=== PATIENT | female | born 1930 | race Caucasian/White ===

== ENCOUNTER 2017-01-12 11:05 | Emergency (ER) | payer MEDICARE, BC ==
[2017-01-12 11:18] VITALS: BP 171/80
[2017-01-12] MEDS ORDERED: Sodium Chloride 0.9% 10 ML Syringe FLUSH PRN (11:28)
[2017-01-12] MEDS ORDERED: Furosemide 40 MG/4 ML VIAL IVPUSH ONE ×2 (11:28→12:28)
--- NOTE | 2017-01-12 11:36 | EDM.PDOC ---
ED HISTORY OF PRESENT ILLNESS - General Chief Complaint: Cardiovascular Problem Stated Complaint: SWOLLEN LEGS Time Seen by Provider: 01/12/17 11:19 Source of Information: Reports: Patient History Limitations: Reports: No limitations - History of Present Illness INITIAL COMMENTS - FREE TEXT/NARRATIVE: Patient presents for evaluation and treatment of bilateral lower leg edema and shortness of breath. Patient reports that she has noticed the bilateral lower leg edema worsening over the last 3 weeks. She reports that she has a blister on the top of her right foot. She also reports associated symptoms of weight gain. She denies any orthopnea, chest pain, lower leg pain, cough, fevers, nausea or vomiting. Patient noticed today that she feels her breath with activity. She states that she was taking out the trash when she felt short of breath. Patient is on Lasix. She did not take her Lasix today. She is also on Coumadin for A. fib. The patient also has compression stockings but did not wear them today. Patient reports about one month ago she was seen by a vascular surgeon. She reports there was nothing he could offer her for her edema. PCP is Dr. Dowell. Last seen in November. - Related Data Allergies/ADRs: Allergies Allergy/AdvReac Type Severity Reaction Status Date / Time sulfamethoxazole Allergy Rash Verified 01/12/17 11:18 [From Bactrim] trimethoprim [From Bactrim] Allergy Rash Verified 01/12/17 11:18 Home Meds: Home Meds Diltiazem [Cardizem CD] 240 mg PO DAILY 01/12/17 [History] Furosemide [Lasix] 40 mg PO DAILY 01/12/17 [History] Levothyroxine [Synthroid] 50 mcg PO ACBREAKFAST 01/12/17 [History] Metoprolol Succinate [Toprol XL] 50 mg PO DAILY 01/12/17 [History] Multivitamin [Multivitamins] 1 tab PO DAILY 01/12/17 [History] Potassium Chloride 20 meq PO BID 01/12/17 [History] Psyllium Husk [Metamucil] 660 gm PO BEDTIME 01/12/17 [History] Ubidecarenone [Coenzyme Q-10] 30 mg PO DAILY 01/12/17 [History] Warfarin [Coumadin] 5 mg PO DAILY 01/12/17 [History] atorvaSTATin [Lipitor] 10 mg PO BEDTIME 01/12/17 [History] Past Medical History HEENT History: Reports: Cataract Cardiovascular History: Reports: Afib, Blood clots/VTE/DVT, Hypertension Genitourinary History: Reports: Other (see below) Other Genitourinary History: bladder surgery twice about 15 years ago 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: Musculoskeletal History: Reports: None Endocrine/Metabolic History: Reports: Hypothyroidism Oncologic (Cancer) History: Reports: Other (see below) Other Oncologic History: skin cancer, right arm and back - Past Surgical History HEENT Surgical History: Reports: Cataract surgery Female Surgical History: Reports: None Musculoskeletal Surgical History: Reports: Hip replacement, Knee replacement Oncologic Surgical History: Reports: None Dermatological Surgical History: Reports: Skin biopsy Social & Family History - Family History Family Medical History: Noncontributory - Tobacco Use Smoking Status *Q: Never Smoker - Caffeine Use Caffeine Use: Reports: Coffee - Recreational Drug Use Recreational Drug Use: No ED ROS GENERAL - Review of Systems Review Of Systems: See Below Constitutional: Denies: fever Respiratory: Reports: Shortness of Breath. Denies: Cough Cardiovascular: Reports: Dyspnea on exertion, Edema. Denies: Chest pain, Claudication, Orthopnea GI/Abdominal: Denies: Nausea, Vomiting Skin: Reports: other (blister to the right dorsal foot) ED EXAM, GENERAL - Physical Exam Exam: See Below Exam Limited By: No limitations General Appearance: alert, WD/WN, no apparent distress, obese Throat/Mouth: Normal inspection, Normal voice, No airway compromise Respiratory/Chest: no respiratory distress, lungs clear, normal breath sounds Cardiovascular: normal peripheral pulses, regular rate, rhythm, no murmur Extremities: pedal edema (4+ pitting edema bilaterally), other (dorsalis pedis and posterior tibialis pulses obscured by edema) Neurological: alert, oriented, normal cognition Psychiatric: normal affect, normal mood Skin Exam: Warm, Dry, Normal color, Other (approximately 2cm in diameter blister to the right dorsal foot) EKG INTERPRETATION EKG Date: 01/12/17 Time: 11:45 Rhythm: NSR Rate (beats/min): 73 [place]: normal P-wave: present QRS: normal ST-T: normal QT: normal EKG Interpretation Comments: NSR at [address] segment changes. Reviewed by myself and Dr. Cornell. Course - Vital Signs Last Recorded V/S: Last Vital Signs Temp 36.4 C 01/12/17 11:14 Pulse 92 01/12/17 11:14 Resp 18 01/12/17 11:14 BP 171/80 H 01/12/17 11:14 Pulse Ox 96 01/12/17 11:14 - Orders/Labs/Meds Orders: Active Orders 24 hr Category Date Time Status Cardiac Monitoring [RC] . DIRECTED Care 01/12/17 11:29 Active EKG 12 Lead [EKG Documentation Completion] [RC] STAT Care 01/12/17 11:28 Active Peripheral IV Care [RC] . DIRECTED Care 01/12/17 11:29 Active Sodium Chloride 0.9% [Saline Flush] Med 01/12/17 11:28 Active 10 ml FLUSH ASDIRECTED PRN Peripheral IV Insertion Adult [OM.PC] Routine Oth 01/12/17 11:28 Ordered Medication Orders Sodium Chloride (Saline Flush) 10 ml FLUSH ASDIRECTED PRN PRN Reason: Keep Vein Open Last Admin: 01/12/17 11:39 Dose: 10 ml Labs: Laboratory Tests 01/12/17 01/12/17 01/12/17 Range/Units 11:45 11:45 11:45 WBC 4.45 (3.98-10.04) K/mm3 RBC 4.21 (3.98-5.22) M/mm3 Hgb 13.4 (11.2-15.7) gm/L Hct 42.2 (34.1-44.9) % MCV 100.2 H (79.4-94.8) fl MCH 31.8 (25.6-32.2) pg MCHC 31.8 L (32.2-35.5) g/dl RDW Std Deviation 51.1 H (36.4-46.3) fL Plt Count 136 L (182-369) K/mm3 MPV 13.1 H (9.4-12.3) fl Neut % (Auto) 57.3 (34.0-71.1) % Lymph % (Auto) 30.1 (19.3-51.7) % [place] % (Auto) 9.9 (4.7-12.5) % Eos % (Auto) 1.8 (0.7-5.8) Baso % (Auto) 0.7 (0.1-1.2) % Neut # (Auto) 2.55 (1.56-6.13) K/mm3 Lymph # (Auto) 1.34 (1.18-3.74) K/mm3 [place] # (Auto) 0.44 H (0.24-0.36) K/mm3 Eos # (Auto) 0.08 (0.04-0.36) K/mm3 Baso # (Auto) 0.03 (0.01-0.08) K/mm3 PT (8.0-13.0) SECONDS INR Sodium 143 (136-145) mEq/L Potassium 3.5 (3.5-5.1) mEq/L Chloride 106 (98-107) mEq/L Carbon Dioxide 29 (21-32) mEq/L Anion Gap 11.5 (5-15) BUN 13 (7-18) mg/dL Creatinine 0.9 (0.55-1.02) mg/dL Est Cr Clr Drug Dosing 39.63 mL/min Estimated GFR (MDRD) 59 (>60) mL/min BUN/Creatinine Ratio 14.4 (14-18) Glucose 116 H (83-115) mg/dL Calcium 8.6 (8.5-10.1) mg/dL Total Bilirubin 0.5 (0.2-1.0) mg/dL AST 14 L (15-37) U/L ALT 22 (14-59) U/L Alkaline Phosphatase 138 H (46-116) U/L CK-MB (CK-2) 2.1 (0-3.6) ng/ml Troponin I < 0.017 (0.00-0.056) ng/mL B-Natriuretic Peptide 257 H (0-100) pg/mL Total Protein 7.1 (6.4-8.2) g/dl Albumin 3.4 (3.4-5.0) g/dl Globulin 3.7 gm/dL Albumin/Globulin Ratio 0.9 L (1-2) // Range/Units 11:45 WBC (3.98-10.04) K/mm3 RBC (3.98-5.22) M/mm3 Hgb (11.2-15.7) gm/L Hct (34.1-44.9) % MCV (79.4-94.8) fl MCH (25.6-32.2) pg MCHC (32.2-35.5) g/dl RDW Std Deviation (36.4-46.3) fL Plt Count (182-369) K/mm3 MPV (9.4-12.3) fl Neut % (Auto) (34.0-71.1) % Lymph % (Auto) (19.3-51.7) % [place] % (Auto) (4.7-12.5) % Eos % (Auto) (0.7-5.8) Baso % (Auto) (0.1-1.2) % Neut # (Auto) (1.56-6.13) K/mm3 Lymph # (Auto) (1.18-3.74) K/mm3 [place] # (Auto) (0.24-0.36) K/mm3 Eos # (Auto) (0.04-0.36) K/mm3 Baso # (Auto) (0.01-0.08) K/mm3 PT 38.3 H (8.0-13.0) SECONDS INR 3.26 Sodium (136-145) mEq/L Potassium (3.5-5.1) mEq/L Chloride (98-107) mEq/L Carbon Dioxide (21-32) mEq/L Anion Gap (5-15) BUN (7-18) mg/dL Creatinine (0.55-1.02) mg/dL Est Cr Clr Drug Dosing mL/min Estimated GFR (MDRD) (>60) mL/min BUN/Creatinine Ratio (14-18) Glucose (83-115) mg/dL Calcium (8.5-10.1) mg/dL Total Bilirubin (0.2-1.0) mg/dL AST (15-37) U/L ALT (14-59) U/L Alkaline Phosphatase (46-116) U/L CK-MB (CK-2) (0-3.6) ng/ml Troponin I (0.00-0.056) ng/mL B-Natriuretic Peptide (0-100) pg/mL Total Protein (6.4-8.2) g/dl Albumin (3.4-5.0) g/dl Globulin gm/dL Albumin/Globulin Ratio (1-2) Meds: Medications Generic Name Dose Route Start Last Admin Trade Name Freq PRN Reason Stop Dose Admin Sodium Chloride 10 ml 01/12/17 11:28 01/12/17 11:39 Saline Flush FLUSH 10 ml ASDIRECTED PRN Administration Keep Vein Open Discontinued Medications Generic Name Dose Route Start Last Admin Trade Name Woody PRN Reason Stop Dose Admin Furosemide 40 mg 01/12/17 11:28 01/12/17 11:39 Lasix IVPUSH 01/12/17 11:29 40 mg NOW ONE Administration Furosemide 40 mg 01/12/17 12:28 01/12/17 12:48 Lasix IVPUSH 01/12/17 12:29 40 mg NOW ONE Administration - Radiology Interpretation Free Text/Narrative:: Chest [address] Nicholas: 1. Findings as noted above. Nothing acute is definitely appreciated. - Re-Assessments/Exams Free Text/Narrative Re-Assessment/Exam: 01/12/17 13:08 Labs returned. WBC is 4.45, hgb is 13.4 and plts are 136 Sodium is 143, potassium is 3.5, chlorides is 106. Anion gap is 11.5. Glucose is 116. Creatining is 0.9 Alk phos is 138 (range has been 135-148) CKMB is 2.3 trop is <0.017 BNP is elevated at 257, last on file from 03-26-16 was 102 Pt is 38.3, INR is 3.26 Reviewed the labs, ekg and chest xray with the patient. Will have the patient hold her lasix today. Start with 60mg PO daily tomorrow. Follow-up with PCP the end of this week or early next week. Discharge instructions as documented. b/p is 120/65 Departure - Departure Time of Disposition: 13:09 Disposition: Home, Self-Care 01 Condition: fair Clinical Impression: Edema of both legs Referrals: Cindy Dowell MD [Primary Care Provider] - Forms: ED Department Discharge Additional Instructions: Hold your lasix at home today, you were given lasix in the ER. Start with 60mg (or 1 and 1/2 tabs) PO tomorrow. Elevate your legs. Wear your compression stockings. Follow-up with Dr. Dowell the end of this week or early next week for a recheck. Please return to the ER should your symptoms change or worsen. - My Orders Last 24 Hours: My Active Orders 01/12/17 11:28 EKG 12 Lead [EKG Documentation Completion] [RC] STAT Sodium Chloride 0.9% [Saline Flush] 10 ml FLUSH ASDIRECTED PRN Peripheral IV Insertion Adult [OM.PC] Routine 01/12/17 11:29 Cardiac Monitoring [RC] . DIRECTED Peripheral IV Care [RC] . DIRECTED - Assessment/Plan Last 24 Hours: My Active Orders 01/12/17 11:28 EKG 12 Lead [EKG Documentation Completion] [RC] STAT Sodium Chloride 0.9% [Saline Flush] 10 ml FLUSH ASDIRECTED PRN Peripheral IV Insertion Adult [OM.PC] Routine 01/12/17 11:29 Cardiac Monitoring [RC] . DIRECTED Peripheral IV Care [RC] . DIRECTED
--- NOTE | 2017-01-12 12:04 | CR ---
Chest: Two views of the chest were obtained. Comparison: Previous chest x-ray of 04/09/16. Nodule noted within the right lung base which appears stable. Lung markings slightly increased which appear stable. No acute infiltrates are appreciated. Heart size appears at the upper limits of normal. Tortuous thoracic aorta is seen. Slight degenerative change is noted within the spine. Diaphragms are slightly flattened on the lateral view suggesting emphysematous change. Impression: 1. Findings as noted above. Nothing acute is definitely appreciated. Diagnostic code #2
== END 2017-01-12 13:32 | disposition home or self-care (01) ==
LOC: JD.ED 11:05
DX: R60.0 Localized edema (principal); I10 Essential (primary) hypertension; E03.9 Hypothyroidism, unspecified; Z85.828 Personal history of other malignant neoplasm of skin; Z98.49 Cataract extraction status, unspecified eye; Z86.718 Personal history of other venous thrombosis and embolism; Z96.659 Presence of unspecified artificial knee joint; Z96.649 Presence of unspecified artificial hip joint; Z79.01 Long term (current) use of anticoagulants; Z79.899 Other long term (current) drug therapy; Z88.2 Allergy status to sulfonamides; Z88.1 Allergy status to other antibiotic agents; Z98.890 Other specified postprocedural states; R06.02 Shortness of breath
CPT/HCPCS: 36415; 71020; 80053; 82553; 83880; 84484; 85025; 85610; 93005; 96374; 96376; 99284; J1940; J7050

== ENCOUNTER 2017-12-26 21:59 | Emergency (ER) | payer MEDICARE, BC ==
[2017-12-26 22:08] VITALS: BP 171/87
--- NOTE | 2017-12-26 23:39 | EDM.PDOC ---
ED HPI GENERAL MEDICAL PROBLEM - General Chief Complaint: Headache Stated Complaint: headache Time Seen by Provider: 12/26/17 22:15 Source of Information: Reports: Patient, Family History Limitations: Reports: No Limitations - History of Present Illness INITIAL COMMENTS - FREE TEXT/NARRATIVE: The patient presents with neck pain. The pain started on the right side of her neck to the base of her skull yesterday and then it went to the left side of her neck with pain to the base of the skull. Her blood pressure was also high. She did not hurt herself. She has no numbness or weakness. She has no headache. She has no fever, chills, cough, chest pain, shortness of breath, abdominal pain, nausea or vomiting. She has not had neck pain before. 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 below) Other Treatments MARINE ENGINE MACHINIST APPRENTICE: aleve Headache Pain Score (Numeric/FACES): 7 - Related Data Allergies Allergy/AdvReac Type Severity Reaction Status Date / Time sulfamethoxazole Allergy Rash Verified 01/12/17 11:18 [From Bactrim] trimethoprim [From Bactrim] Allergy Rash Verified 01/12/17 11:18 Home Meds: Home Meds Diltiazem [Cardizem CD] 240 mg PO DAILY 01/12/17 [History] Furosemide [Lasix] 40 mg PO DAILY 01/12/17 [History] Levothyroxine [Synthroid] 50 mcg PO ACBREAKFAST 01/12/17 [History] Metoprolol Succinate [Toprol XL] 50 mg PO DAILY 01/12/17 [History] Multivitamin [Multivitamins] 1 tab PO DAILY 01/12/17 [History] Potassium Chloride 20 meq PO BID 01/12/17 [History] Psyllium Husk [Metamucil] 660 gm PO BEDTIME 01/12/17 [History] Ubidecarenone [Coenzyme Q-10] 30 mg PO DAILY 01/12/17 [History] Warfarin [Coumadin] 5 mg PO DAILY 01/12/17 [History] atorvaSTATin [Lipitor] 10 mg PO BEDTIME 01/12/17 [History] Past Medical History HEENT History: Reports: Cataract Cardiovascular History: Reports: Afib, Blood Clots/VTE/DVT, Hypertension Genitourinary History: Reports: Other (See Below) Other Genitourinary History: bladder surgery twice about 15 years ago [employer] History: Reports: Musculoskeletal History: Reports: None Endocrine/Metabolic History: Reports: Hypothyroidism Oncologic (Cancer) History: Reports: Other (See Below) Other Oncologic History: skin cancer, right arm and back - Past Surgical History HEENT Surgical History: Reports: Cataract Surgery Musculoskeletal Surgical History: Reports: Hip Replacement, Knee Replacement Dermatological Surgical History: Reports: Skin Biopsy Social & Family History - Family History Family Medical History: Noncontributory - Tobacco Use Smoking Status *Q: Never Smoker - Caffeine Use Caffeine Use: Reports: Coffee, Soda - Recreational Drug Use Recreational Drug Use: No ED ROS GENERAL - Review of Systems Review Of Systems: See Below Constitutional: Reports: No Symptoms HEENT: Reports: No Symptoms Respiratory: Reports: No Symptoms Cardiovascular: Reports: No Symptoms Endocrine: Reports: No Symptoms GI/Abdominal: Reports: No Symptoms : Reports: No Symptoms Musculoskeletal: Reports: Neck Pain Skin: Reports: No Symptoms Neurological: Reports: No Symptoms - Physical Exam Exam: See Below Exam Limited By: No Limitations General Appearance: Alert, No Apparent Distress Ears: Normal External Exam Nose: Normal Inspection Throat/Mouth: Normal Inspection Head Exam: Atraumatic, Normocephalic Neck: Normal Inspection, Supple, Non-Tender Respiratory/Chest: No Respiratory Distress, Lungs Clear, Normal Breath Sounds Cardiovascular: Regular Rate, Rhythm, No Edema, No Murmur GI/Abdominal: Soft, Non-Tender, No Organomegaly, No Mass Neuro Exam (Abbreviated): Alert, Oriented, No Motor/Sensory Deficits Course - Vital Signs Last Recorded V/S: Last Vital Signs Temp 99.7 F 12/26/17 22:07 Pulse 86 12/26/17 22:07 Resp 20 12/26/17 22:07 BP 171/87 H 12/26/17 22:07 Pulse Ox 98 12/26/17 22:07 - Orders/Labs/Meds Orders: Active Orders 24 hr Category Date Time Status Cardiac Monitoring [RC] . DIRECTED Care 12/26/17 22:31 Active Cervical Spine 2V or 3V [CR] Stat Exams 12/26/17 22:31 Taken Labs: Laboratory Tests 12/26/17 12/26/17 Range/Units 22:55 22:55 WBC 5.03 (3.98-10.04) K/mm3 RBC 4.26 (3.98-5.22) M/mm3 Hgb 13.6 (11.2-15.7) gm/L Hct 42.0 (34.1-44.9) % MCV 98.6 H (79.4-94.8) fl MCH 31.9 (25.6-32.2) pg MCHC 32.4 (32.2-35.5) g/dl RDW Std Deviation 49.7 H (36.4-46.3) fL Plt Count 154 L (182-369) K/mm3 MPV 12.7 H (9.4-12.3) fl Neut % (Auto) 62.4 (34.0-71.1) % Lymph % (Auto) 22.7 (19.3-51.7) % [place] % (Auto) 11.5 (4.7-12.5) % Eos % (Auto) 2.2 (0.7-5.8) Baso % (Auto) 1.0 (0.1-1.2) % Neut # (Auto) 3.14 (1.56-6.13) K/mm3 Lymph # (Auto) 1.14 L (1.18-3.74) K/mm3 [place] # (Auto) 0.58 H (0.24-0.36) K/mm3 Eos # (Auto) 0.11 (0.04-0.36) K/mm3 Baso # (Auto) 0.05 (0.01-0.08) K/mm3 Sodium 141 (136-145) mEq/L Potassium 4.1 (3.5-5.1) mEq/L Chloride 106 (98-107) mEq/L Carbon Dioxide 28 (21-32) mEq/L Anion Gap 11.1 (5-15) BUN 26 H (7-18) mg/dL Creatinine 1.0 (0.55-1.02) mg/dL Est Cr Clr Drug Dosing 34.99 mL/min Estimated GFR (MDRD) 52 (>60) mL/min BUN/Creatinine Ratio 26.0 H (14-18) Glucose 124 H (83-115) mg/dL Calcium 8.8 (8.5-10.1) mg/dL Total Bilirubin 0.4 (0.2-1.0) mg/dL AST 14 L (15-37) U/L ALT 16 (14-59) U/L Alkaline Phosphatase 125 H (46-116) U/L Total Protein 7.2 (6.4-8.2) g/dl Albumin 3.4 (3.4-5.0) g/dl Globulin 3.8 gm/dL Albumin/Globulin Ratio 0.9 L (1-2) - Re-Assessments/Exams Free Text/Narrative Re-Assessment/Exam: 12/26/17 23:36 Her labs look good. Her x-ray shows arthritis but nothing acute. She took some aleve before coming in and she feels better. Her blood pressure is better. I feel that is elevated because of the pain. I will discharge her home. Departure - Departure Time of Disposition: 23:40 Disposition: Home, Self-Care 01 Condition: Good Clinical Impression: Neck pain, Cervical arthritis - Discharge Information Referrals: Cindy Dowell MD [Primary Care Provider] - 1 Week Additional Instructions: Take your medication as prescribed. Take motrin or aleve as needed for neck pain. Ice your neck for 15 minutes 3 times per day for 2 days and then use ice or heat after that. Keep track of your blood pressures and follow up with Dr Dowell. Please return if you are worse. - My Orders Last 24 Hours: My Active Orders 12/26/17 22:31 Cardiac Monitoring [RC] . DIRECTED Cervical Spine 2V or 3V [CR] Stat - Assessment/Plan Last 24 Hours: My Active Orders 12/26/17 22:31 Cardiac Monitoring [RC] . DIRECTED Cervical Spine 2V or 3V [CR] Stat
--- NOTE | 2017-12-27 10:01 | CR ---
Cervical spine: AP, lateral and odontoid views of the cervical spine were obtained. Comparison: No previous study. Diffuse disc space narrowing is seen throughout the cervical spine. Anterior endplate osteophytes are seen at C4-C5, C5-C6 and C6-C7. Minimal posterior ridging is noted at C6-C7. Bony structures are osteopenic. Degenerative change is scattered within the apophyseal joints. No discrete fracture or subluxation is appreciated. Impression: 1. Degenerative change and osteopenia. Diagnostic code #3
== END 2017-12-26 23:45 | disposition home or self-care (01) ==
LOC: JD.ED 21:59
DX: M46.92 Unspecified inflammatory spondylopathy, cervical region (principal); I10 Essential (primary) hypertension; E03.9 Hypothyroidism, unspecified; I48.91 Unspecified atrial fibrillation; Z88.2 Allergy status to sulfonamides; Z88.1 Allergy status to other antibiotic agents; Z79.01 Long term (current) use of anticoagulants; Z79.899 Other long term (current) drug therapy
CPT/HCPCS: 36415; 72040; 72040-26; 80053; 85025; 99283; 99284

== ENCOUNTER 2018-01-15 11:22 | Emergency (ER) | payer MEDICARE, BC ==
[2018-01-15 11:43] VITALS: BP 169/132
--- NOTE | 2018-01-15 12:15 | EDM.PDOC ---
ED HPI GENERAL MEDICAL PROBLEM - General Chief Complaint: Lower Extremity Injury/Pain Stated Complaint: LT KNEE INJURY Time Seen by Provider: 01/15/18 12:00 Source of Information: Reports: Patient History Limitations: Reports: No Limitations - History of Present Illness INITIAL COMMENTS - FREE TEXT/NARRATIVE: 88-year-old female presents for evaluation and treatment of injury to the left knee. Patient reports was her birthday yesterday. She states that she was walking when she tripped over some tape. She states she fell directly on the left knee. Last night she was to a walker and a cane to help her move around. She is now appreciated worsening swelling to the knee, decreased range of motion and pain. She states she landed directly on the knee. No head trauma. No hip pain or ankle pain. Patient a right knee replacement done by orthopedics several years ago in [place]. Primary care provider is Dr. Dowell. Patient is on Coumadin. Reports she had an INR checked last week was within normal range. Duration: Day(s): (1) Location: Reports: Lower Extremity, Left Treatments SENIOR INTERACTIVE PRODUCER: Reports: Other (see below) Other Treatments SENIOR INTERACTIVE PRODUCER: alleve at 0600 Left Knee Pain Score (Numeric/FACES): 9 - Related Data Allergies Allergy/AdvReac Type Severity Reaction Status Date / Time sulfamethoxazole Allergy Rash Verified 01/12/17 11:18 [From Bactrim] trimethoprim [From Bactrim] Allergy Rash Verified 01/12/17 11:18 Home Meds: Home Meds Diltiazem [Cardizem CD] 240 mg PO DAILY 01/12/17 [History] Furosemide [Lasix] 40 mg PO DAILY 01/12/17 [History] Levothyroxine [Synthroid] 112 mcg PO ACBREAKFAST 01/12/17 [History] Metoprolol Succinate [Toprol XL] 50 mg PO DAILY 01/12/17 [History] Multivitamin [Multivitamins] 1 tab PO DAILY 01/12/17 [History] Potassium Chloride 20 meq PO BID 01/12/17 [History] Psyllium Husk [Metamucil] 660 gm PO BEDTIME 01/12/17 [History] Ubidecarenone [Coenzyme Q-10] 30 mg PO DAILY 01/12/17 [History] Warfarin [Coumadin] 5 mg PO DAILY 01/12/17 [History] atorvaSTATin [Lipitor] 10 mg PO BEDTIME 01/12/17 [History] Past Medical History HEENT History: Reports: Cataract Cardiovascular History: Reports: Afib, Blood Clots/VTE/DVT, Hypertension Genitourinary History: Reports: Other (See Below) Other Genitourinary History: bladder surgery twice about 15 years ago MANAGER BODY History: Reports: Musculoskeletal History: Reports: None Endocrine/Metabolic History: Reports: Hypothyroidism Oncologic (Cancer) History: Reports: Other (See Below) Other Oncologic History: skin cancer, right arm and back - Past Surgical History HEENT Surgical History: Reports: Cataract Surgery Musculoskeletal Surgical History: Reports: Hip Replacement, Knee Replacement Dermatological Surgical History: Reports: Skin Biopsy Social & Family History - Family History Family Medical History: Noncontributory - Tobacco Use Smoking Status *Q: Never Smoker - Caffeine Use Caffeine Use: Reports: Coffee - Recreational Drug Use Recreational Drug Use: No Review of Systems - Review of Systems Review Of Systems: See Below Respiratory: Denies: Shortness of Breath Cardiovascular: Denies: Chest Pain Musculoskeletal: Reports: Joint Pain (left knee), Joint Swelling (left knee). Denies: Neck Pain, Arm Pain, Back Pain Skin: Reports: Bruising (left knee) Neurological: Denies: Headache, Numbness, Syncope, Tingling ED EXAM, GENERAL - Physical Exam Exam: See Below Exam Limited By: No Limitations General Appearance: Alert, WD/WN, No Apparent Distress Ears: Normal External Exam Throat/Mouth: Normal Inspection, Normal Voice, No Airway Compromise Head: Atraumatic, Normocephalic Neck: Normal Inspection, Non-Tender, Full Range of Motion Respiratory/Chest: No Respiratory Distress, Lungs Clear, Normal Breath Sounds Cardiovascular: Normal Peripheral Pulses, Systolic Murmur, Irregularly Irregular Peripheral Pulses: 1+: Dorsalis Pedis (L), Dorsalis Pedis (R) Extremities: Normal Capillary Refill, Joint Swelling (left knee), Limited Range of Motion (unable to flex left knee more than 150 degrees), Other (posterior tib pulses obscured by edema; tenderness to palpation to the proximal left tibia and left patella) Neurological: Alert, Oriented, Normal Cognition Psychiatric: Normal Affect, Normal Mood Skin Exam: Warm, Dry, Ecchymosis (left knee ) Course - Vital Signs Last Recorded V/S: Last Vital Signs Temp 36.6 C 01/15/18 11:42 Pulse 103 H 01/15/18 11:42 Resp 20 01/15/18 11:42 BP 169/132 H 01/15/18 11:42 Pulse Ox 93 L 01/15/18 11:42 - Radiology Interpretation Free Text/Narrative:: Left tib/fib shows no acute fractures. Left knee: 4 views of the left knee were obtained. Comparison: Previous standing AP knee exam of 12/15/10. Moderate medial joint space narrowing is seen. Chondrocalcinosis is noted within the lateral and medial menisci. Incidental varicosities are seen within the superficial soft tissues. Arterial calcification is also seen. No discrete left-sided joint effusion is noted. No acute fracture is identified. Soft tissue swelling is noted anteriorly. Impression: 1. Medial joint space narrowing and chondrocalcinosis. Soft tissue swelling. Other incidental findings. 2. No acute bony abnormality is seen. CT left knee Technique: Multiple axial sections through the left knee were obtained. Reconstructed coronal and sagittal images were reviewed. Comparison: Previous left knee radiograph performed earlier on the same day (12: 03 PM). Findings: Osteopenia is seen. Moderate medial joint space narrowing is noted. Mild lateral joint space narrowing seen within the patellofemoral joint. Soft tissue swelling is noted anterior to the patella with possible hematoma. Diffuse subcutaneous edema is also noted. Chondrocalcinosis is noted within the menisci. No acute fracture or dislocation is seen. Impression: 1. Soft tissue swelling and possible hematoma anterior to the patella. Diffuse subcutaneous edema is noted around the knee. 2. Degenerative change as noted above. No acute bony abnormality is appreciated. - Re-Assessments/Exams Free Text/Narrative Re-Assessment/Exam: 01/15/18 13:55 Patient has declined pain medication while in the ER. No fx seen on Xray. Due to severity of injury will get a CT to rule out tibial plateau fracture. Patient made aware and agrees. 01/15/18 14:[address] results with the patient. We will discharge her home at this time. Discharge instructions this document. Departure - Departure Time of Disposition: 14:54 Disposition: Home, Self-Care 01 Condition: Fair Clinical Impression: Hematoma - Discharge Information Instructions: Hematoma Referrals: Cindy Dowell MD [Primary Care Provider] - Forms: ED Department Discharge Additional Instructions: Elevate the leg as much as possible. Continue using your cane or walker for assistance. Rest. Use ice or heat to the sore areas for additional pain relief. [id number] Aleve as needed for pain relief. Follow up with your primary care provider on Wednesday as planned. Please return to the ER if your symptoms change or worsen.
--- NOTE | 2018-01-15 15:19 | CR ---
Left tibia and fibula: AP and lateral views of the left tibia and fibula were obtained. Vascular calcification is seen. Bony structures are osteopenic. Degenerative change is seen within the knee as described on previous knee exam. There does appear to be soft tissue swelling around the ankle. Large plantar spur is seen. Calcifications are noted within the distal Achilles tendon. Minimal plantar calcification is also seen. No acute bony abnormality is identified. Impression: 1. Findings as described above. 2. No acute bony abnormality is identified on left tibia and fibula study. Diagnostic code #2
--- NOTE | 2018-01-15 15:19 | CR ---
Left knee: Four views of the left knee were obtained. Comparison: Previous standing AP knee exam of 12/15/10. Moderate medial joint space narrowing is seen. Chondrocalcinosis is noted within the lateral and medial menisci. Incidental varicosities are seen within the superficial soft tissues. Arterial calcification is also seen. No discrete left-sided joint effusion is noted. No acute fracture is identified. Soft tissue swelling is noted anteriorly. Impression: 1. Medial joint space narrowing and chondrocalcinosis. Soft tissue swelling. Other incidental findings. 2. No acute bony abnormality is seen. Diagnostic code #3
--- NOTE | 2018-01-17 06:49 | CT ---
CT left knee Technique: Multiple axial sections through the left knee were obtained. Reconstructed coronal and sagittal images were reviewed. Comparison: Previous left knee radiograph performed earlier on the same day (12: 03 PM). Findings: Osteopenia is seen. Moderate medial joint space narrowing is noted. Mild lateral joint space narrowing seen within the patellofemoral joint. Soft tissue swelling is noted anterior to the patella with possible hematoma. Diffuse subcutaneous edema is also noted. Chondrocalcinosis is noted within the menisci. No acute fracture or dislocation is seen. Impression: 1. Soft tissue swelling and possible hematoma anterior to the patella. Diffuse subcutaneous edema is noted around the knee. 2. Degenerative change as noted above. No acute bony abnormality is appreciated. Diagnostic code #3 MTDD
== END 2018-01-15 15:20 | disposition home or self-care (01) ==
LOC: JD.ED 11:22
DX: S80.02XA Contusion of left knee, initial encounter (principal); I10 Essential (primary) hypertension; E03.9 Hypothyroidism, unspecified; Z88.2 Allergy status to sulfonamides; Z88.1 Allergy status to other antibiotic agents; Z79.899 Other long term (current) drug therapy; W01.0XXA Fall on same level from slipping, tripping and stumbling without subsequent striking against object, initial encounter
CPT/HCPCS: 73564-26-LT; 73564-LT; 73590-26-LT; 73590-LT; 73700-26-LT; 73700-LT; 99283